=== PATIENT | male | born 1975 | race Caucasian/White ===

== ENCOUNTER → 2017-01-30 | Emergency (ER) | payer MEDICAID ==
[~2017-01-30] MED LIST: ALPR0.5T7; ALPR1TAB7 PO; AMLO10TA2 PO; CYCL10TA9 PO; DIPH25CA79 PO; DOCU-143 PO; HYDR-3714 PO; HYDR-3812 PO; IBUP200C PO; NAPR-243 PO; NF-ALI300T PO; PRD20T PO; RT-ALBUINH IH; TMZP15C; TRAM-42 PO
== END | disposition left against medical advice (07) ==
LOC: EDUNIT# 22:36 → ER 22:38
DX: R10.31 Right lower quadrant pain (principal); Z53.21 Procedure and treatment not carried out due to patient leaving prior to being seen by health care provider

== ENCOUNTER 2019-05-06 08:02 | Emergency (ER) | payer MEDICAID ==
[~2019-05-06] VITALS: Ht 180.3 cm; Wt 105.7 kg
[~2019-05-06 08:02] MED LIST changes: +ACHD5005 PO; -AMLO10TA2 PO; +AMLO10TA7 PO; -HYDR-3812 PO
[2019-05-06] MEDS ORDERED: HYDROcodone/APAP 5 MG/325 MG (LORTAB) TAB PO ONE (08:15)
--- NOTE | 2019-05-06 08:16 | ED Lower Extremity ---
General Chief Complaint: Lower Extremity Stated Complaint: R FOOT INJ Source: patient Exam Limitations: no limitations History of Present Illness Date Seen by Provider: May 06, 2019 Time Seen by Provider: 07:58 Initial Comments Patient presents to ER by private conveyance with his spouse and chief complaint that 10 days ago he swung his feet to get up in the morning put his feet down and somehow landed caused tremendous amount of pain in his right ankle and foot. He's had swelling that gets better when he props it up but within an hour or 2 of standing up spelled back up. He has bruising and still difficulty walking on it as bad as the first day he injured it. He denies a previous history of trauma, recent trauma or fracture/surgery. He says it's too painful to wrap can barely even get a sock on it without causing pain. He's been using Advil with minimal relief last use was in o'clock last night. He also use some baclofen last night with minimal relief. Initially after the injury he went to [facility] where he said that they can x-ray of it looked at it and told him it was sprained. He is using a single crutch to get by. Before this he ambulated without assistive devices. He has a history of high blood pressure. Allergies and Home Medications Allergies Coded Allergies: No Known Drug Allergies (Unverified , 04/28/11) Home Medications Albuterol Sulfate 8.5 Gm Hfa.aer.ad, 1-2 PUFF IH Q4H PRN for WHEEZING, (Reported) Aliskiren Hemifumarate 300 Mg Tab, 300 MG PO DAILY, (Reported) Alprazolam 1 Mg Tablet, 1 MG PO BID, (Reported) Amlodipine Besylate 10 Mg Tablet, 10 MG PO DAILY, (Reported) Diphenhydramine HCl 25 Mg Capsule, 25-50 MG PO DAILY, (Reported) Docusate Sodium 100 Mg Capsule, 100 MG PO BID Prescribed by: NAWAF MARINO on 04/07/16920 Hydrocodone Bit/Acetaminophen 1 Each Tablet, 1 TAB PO Q4H PRN Prescribed by: NAWAF MARINO on 04/07/16920 Tramadol HCl 50 Mg Tablet, 50 MG PO BID, (Reported) Patient Home Medication List Home Medication List Reviewed: Yes Review of Systems Constitutional: No chills, No diaphoresis EENTM: No ear discharge, No ear pain Respiratory: No cough, No short of breath Cardiovascular: No chest pain, No Hx of Intervention Gastrointestinal: No abdominal pain, No nausea, No vomiting Genitourinary: No discharge, No dysuria Past Tvenswt-Yfdiqa-Cqwquw Hx Patient Social History Alcohol Use: Denies Use Recreational Drug Use: Yes Drug of Choice: MJ occ Smoking Status: Former Smoker Former Smoker, Quit: Sep 11, 2013 Recent Foreign Travel: No Contact w/Someone Who Travel: No Immunizations Up To Date Tetanus Booster (TDap): Unknown Past Medical History Amputation, Eye Surgery Emphysema High Cholesterol, Hypertension Reproductive Disorders: No Sexually Transmitted Disease: No HIV/AIDS: No Gall Bladder Disease Chronic Back Pain Anxiety, PTSD, Bipolar, Depression Adverse Reaction/Blood Tranf: No Physical Exam Vital Signs Vital Signs - First Documented 05/06/19 08:09 Temp 98.9 Pulse 93 Resp 18 B/P (MAP) 182/114 (136) Pulse Ox 97 Capillary Refill : Height, Weight, BMI Height: 6'0.00" Weight: 240lbs. 2.0oz. 108.787600wz; 32.6 BMI Method:Stated General Appearance: WD/WN, mild distress HEENT: PERRL/EOMI, pharynx normal Neck: full range of motion, normal inspection Cardiovascular: normal peripheral pulses, regular rate, rhythm Respiratory: no respiratory distress, no accessory muscle use Knees: bilateral knee non-tender, bilateral knee normal inspection, bilateral knee normal range of motion, bilateral knee no evidence of injury Ankles: left ankle non-tender, left ankle normal inspection, left ankle normal range of motion, left ankle no evidence of injury; right ankle bone tenderness (medial and lateral malleoli), right ankle ecchymosis, right ankle joint effusion, right ankle pain, right ankle soft tissue tenderness, right ankle swelling Feet: left foot non-tender, left foot normal inspection, left foot normal range of motion, left foot no evidence of injury; right foot bone tenderness (all 5 metatarsals), right foot ecchymosis, right foot pain, right foot soft tissue tenderness, right foot swelling Neurologic/Tendon: normal sensation, normal motor functions, normal tendon functions, responds to pain, no evidence tendon injury Neurologic/Psychiatric: alert, normal mood/affect, oriented x 3 Skin: warm/dry, ecchymosis (right foot and ankle) Progress/Results/Core Measures Results/Orders My Orders Orders - BRAYDEN DELACRUZ Foot, Right, 3 View (05/06/19 08:13) Ankle, Right, 3 Views (05/06/19 08:13) Hydrocodone/Apap 5/325 Tablet (Lortab 5 (05/06/19 08:15) Medications Given in ED Current Medications Medications Dose Ordered Sig/Nasim Route Start Time Stop Time Status Last Admin Dose Admin Acetaminophen/ Hydrocodone Bitart 1 tab ONCE ONCE PO 05/06/19 08:15 05/06/19 08:16 DC 05/06/19 08:18 1 TAB Vital Signs/I&O 05/06/19 08:09 Temp 98.9 Pulse 93 Resp 18 B/P (MAP) 182/114 (136) Pulse Ox 97 Progress Progress Note #1: Time: 08:21 Progress Note Still having significant pain and disability 10 days out. Suspect occult fracture. Repeat x-ray of foot and ankle. We do not have the previous x-rays to compare since they were obtained at [facility]. Hydrocodone for pain. Progress Note #2: Time: 09:33 Progress Note No overt fracture on repeat x-rays of the ankle or foot. Could be severe sprain strain ligament tear versus occult fracture. We'll put him in a boot getting a second crutch and plan on sending him outpatient orthopedics. Diagnostic Imaging Diagonstic Imaging: Xray Plain Films/CT/US/NM/MRI: ankle (right) Comments NAME: CASSIE ROY [facility] REC#: [id number] PT STATUS: REG ER : 1975 PHYSICIAN: BRAYDEN DELACRUZ MD ADMIT DATE: 05/06/19/ER Draft Date of Exam:05/06/19 ANKLE, RIGHT, 3 VIEWS INDICATION: Twisted ankle and fall. Pain on the lateral side of the right ankle. COMPARISON: Right foot radiograph performed the same day. TECHNIQUE: 3 views of the right ankle. FINDINGS: No acute fracture or dislocation is seen in the right ankle. The ankle mortise is well aligned. The tibial plafond and talar dome are intact. The bone mineralization is normal. There is soft tissue edema along the lateral aspect of the right ankle. IMPRESSION: No acute fracture or dislocation in the right ankle. Soft tissue edema is noted along the lateral aspect of the right ankle. Dictated on workstation # [id number] Dict: 05/06/19 0853 Trans: 05/06/19 09 [id number] Interpreted by: ZAIN SERRATO DO Electronically signed by: Reviewed: Reviewed by Me Diagonstic Imaging: Xray Plain Films/CT/US/NM/MRI: other (right foot.) Comments NAME: CASSIE ROY [facility] REC#: [id number] PT STATUS: REG ER : 1975 PHYSICIAN: BRAYDEN DELACRUZ MD ADMIT DATE: 05/06/19/ER Draft Date of Exam:05/06/19 FOOT, RIGHT, 3 VIEW INDICATION: Stepped out of bed 2 days ago, twisting ankle and landed on the floor. Swelling and bruising. TECHNIQUE: 3 views of the right foot CORRELATION STUDY: None FINDINGS: The osseous structures of the foot are intact. Joint spaces are maintained. Alignment anatomic. Soft tissues appearing unremarkable. IMPRESSION: 1. Negative for acute findings of the foot. Dictated on workstation # [id number] Dict: 05/06/19 0840 Trans: 05/06/19 0842 [id number] Interpreted by: PAVEL BURK DO Electronically signed by: Reviewed: Reviewed by Me Consults : Consulting Physician: ELTON SMITH MD Consults Notes He is happy to follow the patient up in the clinic and agrees with boot. Departure Impression Primary Impression: Right ankle sprain Qualified Codes: S93.401D - Sprain of unspecified ligament of right ankle, subsequent encounter Disposition: 01 HOME, SELF-CARE Condition: Stable Departure-Patient Inst. Decision time for Depature: 09:39 Referrals: [facility] (PCP) Primary Care Physician XIOMARA JEFFRIES (Family) Primary Care Physician ELTON SMITH MD Patient Instructions: Ankle Sprain (DC) Add. Discharge Instructions: Keep the ankle elevated above the level of your heart when possible to reduce swelling and pain. Continue to use Aleve/Naprosyn 2 capsules twice daily for pain and swelling. Alternatively you can use ibuprofen/Advil 4 tablets every 8 hours. Tylenol 650 mg every 8 hours as needed for pain. Hydrocodone one tablet every 6 hours as needed for breakthrough pain. Use the crutches and weightbearing as tolerated. Call Dr. Smith, orthopedic surgeon for follow-up in the clinic. All discharge instructions reviewed with patient and/or family. Voiced understanding. Scripts Hydrocodone Bit/Acetaminophen (Hydrocodone/Acetaminophen 5/325mg Tablet) 1 Tab Tab 1 EACH PO Q4-6HR PRN for PAIN-MODERATE MDD 10 for 3 Days, #10 TAB 0 Refills Prov: BRAYDEN DELACRUZ 05/06/19 BRAYDEN DELACRUZ May 06, 2019 08:16
--- NOTE | 2019-05-06 08:43 | Diagnostic Imaging Report ---
INDICATION: Stepped out of bed 2 days ago, twisting ankle and landed on the floor. Swelling and bruising. TECHNIQUE: 3 views of the right foot CORRELATION STUDY: None FINDINGS: The osseous structures of the foot are intact. Joint spaces are maintained. Alignment anatomic. Soft tissues appearing unremarkable. IMPRESSION: 1. Negative for acute findings of the foot. Dictated by: Dictated on workstation # [id number]
--- NOTE | 2019-05-06 09:01 | Diagnostic Imaging Report ---
INDICATION: Twisted ankle and fall. Pain on the lateral side of the right ankle. COMPARISON: Right foot radiograph performed the same day. TECHNIQUE: 3 views of the right ankle. FINDINGS: No acute fracture or dislocation is seen in the right ankle. The ankle mortise is well aligned. The tibial plafond and talar dome are intact. The bone mineralization is normal. There is soft tissue edema along the lateral aspect of the right ankle. IMPRESSION: No acute fracture or dislocation in the right ankle. Soft tissue edema is noted along the lateral aspect of the right ankle. Dictated by: Dictated on workstation # [id number]
[2019-05-06] MEDS ORDERED: ACHD5005 PO (09:41)
[2019-05-06 09:46] VITALS: BP 182/114
== END 2019-05-06 09:47 | disposition home or self-care (01) ==
LOC: EDUNIT# 08:02 → ER 08:03
DX: S93.401A Sprain of unspecified ligament of right ankle, initial encounter (principal); S90.31XA Contusion of right foot, initial encounter; J43.9 Emphysema, unspecified; I10 Essential (primary) hypertension; E78.00 Pure hypercholesterolemia, unspecified; F41.9 Anxiety disorder, unspecified; F43.10 Post-traumatic stress disorder, unspecified; F31.9 Bipolar disorder, unspecified; Z87.891 Personal history of nicotine dependence; X50.1XXA Overexertion from prolonged static or awkward postures, initial encounter
CPT/HCPCS: 73610; 73630

== ENCOUNTER → 2019-05-15 | Outpatient (CLI) | payer MEDICAID | LOC: ORTHO 08:57 | PROVIDERS: ATTEND Orthopaedic Surgery | DX: S93.401A Sprain of unspecified ligament of right ankle, initial encounter (principal); S90.31XA Contusion of right foot, initial encounter; X50.1XXA Overexertion from prolonged static or awkward postures, initial encounter | CPT/HCPCS: 99203 ==